=== PATIENT | male | born 1960 | race African-American/Black ===

== ENCOUNTER 2016-05-22 20:48 | Emergency (ER) | payer SELFPAY ==
[2016-05-22] MEDS ORDERED: Oxymetazoline HCl 0.05% ( 15 ML ) ONE (21:09)
--- NOTE | 2016-05-22 21:40 | ERRECORD ---
[facility] EMERGENCY RECORD HPI GENERAL (21:17 [facility]) CHIEF COMPLAINT: Patient presents for evaluation of nose bleed. HISTORIAN: History provided by patient, 56 yo M with sinus congestion past week with nose bleed on/off x 2-3 days sinus congestion past week no other symptoms. MECHANISM OF INJURY: Unknown mechanism. LOCATION: Symptoms are generalized. QUALITY: Pain is dull in nature. SEVERITY: Maximum severity of symptoms mild, Currently there are no symptoms. TIME COURSE: Sudden onset of symptoms, Symptoms are improving, are intermittent. ASSOCIATED WITH: No associated symptoms. EXACERBATED BY: Patient's condition exacerbated by nothing. RELIEVED BY: Nothing tried for relief. ROS (21:17 [facility]) CONSTITUTIONAL: Negative constitutional review of systems. ENT: Historian reports rhinorrhea, nose bleed. CARDIOVASCULAR: Negative cardiovascular review of systems. RESPIRATORY: Negative respiratory review of systems. MUSCULOSKELETAL: Negative musculoskeletal review of systems. NEUROLOGIC: Negative neurologic review of systems. PAST MEDICAL HISTORY (21:01 [facility]) MEDICAL HISTORY: Flu vaccine up to date, Tetanus immunization up to date, Pneumococcal vaccine not up to date, Past medical history includes history of hypertension, which has been treated, Patient is compliant. MALE SURGICAL HISTORY: Patient has no surgical history. PSYCHIATRIC HISTORY: No previous psychiatric history. SOCIAL HISTORY: Patient drinks socially, once a month, Patient denies drug use, Patient currently uses tobacco, smokes cigarettes, daily, Patient has smoked for 30 years, Patient smokes 1 pack per day, Lives at home, alone. KNOWN ALLERGIES No Known Drug Allergies CURRENT MEDICATIONS (20:55 [facility]) hydrochlorothiazide: CAPSULE : Strength - 12.5 mg : ORAL Patient Dose: unknown Oral once a day.Paired with an antihypertensive but doesn't know which one. VITAL SIGNS (20:51 [facility]) &a-1R&a+25V*p+0X*c8712C*c202B*c15G*c2P*p-0X&a-25V&a+1R Name: Adebayo Bates : 1960 M56 MedRec: [id number] AcctNum: [id number] Prepared: Sen May 22, 2016 21:50 by Interface Page 1 of 3 pMD [facility] EMERGENCY RECORD VITAL SIGNS: BP: 161/82, Pulse: 72, Resp: 20, Temp: 96.5 (Tympanic), Pain: 0, O2 sat: 100 on Room Air, Time: 05/22/2016 20:51. PHYSICAL EXAM (21:18 [facility]) CONSTITUTIONAL: Vital signs reviewed, Patient afebrile, Pulse normal, Blood pressure, hypertensive, Respiratory rate normal, Patient appears non toxic, Patient appears pain free, Patient alert and oriented to person, place and time. HEAD: Head exam normal. EYES: Eye exam normal. ENT: Ear exam normal, Nose exam included findings of, Bleeding from the right nare, anterior / bleeding stopped after packing and afrin, Pharynx exam normal, Mouth exam normal. NECK: Neck exam normal. RESPIRATORY CHEST: Respiratory and chest exam normal. CARDIOVASCULAR: Cardiovascular assessment normal. DOCTOR NOTES (21:15 [facility]) RE-EVALUATION: The patient's condition has improved. TEXT: 56 yo M with sinus congestion past week with nose bleed on/off x 2-3 days symptoms resolved in ER with packing and afrin. PATIENT PLAN: The patient will be discharged, The patient will follow up with primary care physician. DATA REVIEWED: Discussed with family. PROBLEM LIST No recorded problems DIAGNOSIS (21:15 [facility]) FINAL: PRIMARY: EPISTAXIS, ADDITIONAL: sinusitis. PRESCRIPTION Flonase: SPRAY, SUSPENSION : 50 mcg : NASAL : Quantity: 2 Unit: spray(s) Route: NASAL Schedule: once a day Dispense: 1 May substitute. Refills: No Refills . (21:14 [facility]) NOTES: 2 sprays nasally daily as needed until symptoms resolved No Refills. (21:14 [facility]) Claritin: TABLET : 10 mg : ORAL : Quantity: 1 Unit: tab(s) Route: ORAL Schedule: once a day Dispense: 15 Unit: tab(s) May substitute. Refills: No Refills . (21:14 [facility]) NOTES: No Refills. (21:14 [facility]) Claritin (REPRINT): TABLET : 10 mg : ORAL : Quantity: 1 Unit: tab(s) Route: ORAL Schedule: once a day Dispense: 15 Unit: tab(s) &a-1R&a+25V*p+0X*a5052T*c202B*c15G*c2P*p-0X&a-25V&a+1R Name: Adebayo Bates : 1960 M56 MedRec: [id number] AcctNum: [id number] Prepared: Sen May 22, 2016 21:50 by Interface Page 2 of 3 pMD [facility] EMERGENCY RECORD May substitute. Refills: No Refills . (21:16 [facility]) Flonase (REPRINT): SPRAY, SUSPENSION : 50 mcg : NASAL : Quantity: 2 Unit: spray(s) Route: NASAL Schedule: once a day Dispense: 1 May substitute. Refills: No Refills . (21:16 [facility]) Claritin (REPRINT): TABLET : 10 mg : ORAL : Quantity: 1 Unit: tab(s) Route: ORAL Schedule: once a day Dispense: 15 Unit: tab(s) May substitute. Refills: No Refills . (21:24 [facility]) Flonase (REPRINT): SPRAY, SUSPENSION : 50 mcg : NASAL : Quantity: 2 Unit: spray(s) Route: NASAL Schedule: once a day Dispense: 1 May substitute. Refills: No Refills . (21:24 [facility]) SPRAY, SUSPENSION : 50 mcg : NASAL : Quantity: 2 Unit: spray(s) Route: NASAL Schedule: once a day Dispense: 1 May substitute. Refills: No Refills . (21:39 [facility]) DISPOSITION PATIENT: Disposition Type: Discharge, Disposition: *Discharge Home. (21:15 [facility]) Patient left the department. (21:33 [facility]) Maynard: [facility]=TISHA Sheridan, Cuca HANCOCK=MD Shruthi, Mary &a-1R&a+25V*p+0X*v8738V*c202B*c15G*c2P*p-0X&a-25V&a+1R Name: Adebayo Bates : 1960 M56 MedRec: [id number] AcctNum: [id number] Prepared: Sen May 22, 2016 21:50 by Interface Page 3 of 3 pMD MTDD
--- NOTE | 2016-05-22 21:46 | PICIS ---
[facility] EMERGENCY RECORD TRIAGE (SatMay 22, 2016 20:53 [facility]) TRIAGE NOTES: Nose bleed (off/on) since Saturday. Unable to get an appointment with PCP today, told to try back on Saturday. (SatMay 22, 2016 20:53 [facility]) PATIENT: NAME: Adebayo Bates, AGE: 56, GENDER: male, : Sat1960, TIME OF GREET: SatMay 22, 2016 20:49, PREFERRED LANGUAGE: Portuguese, ETHNICITY: Not or , ECODE BILLING MAP: [facility], SSN: [id number], Zip Code: [address], KG WEIGHT: 63.50, PHONE: , , , PERSON ID: [id number], PCP: Fabien Moreno /Carlos Enrique. (SatMay 22, 2016 20:53 [facility]) COMPLAINT: NOSE BLEED SINCE SAT,OFF/ON. (SatMay 22, 2016 20:53 [facility]) ADMISSION: URGENCY: 5 [facility], ADMISSION SOURCE: Home, TRANSPORT: CAR, BED: ER -05. (SatMay 22, 2016 20:53 [facility]) ASSESSMENT: Symptoms began 05/12/2016 20:58, Additional Triage notes: Wadded tissue removed from right nare followed by clot, does not appear to be actively bleeding at this time. (21:01 [facility]) PAIN: No complaint of pain. (21:01 [facility]) SIRS SCORING: Heart Rate 55-109 (0), Temp range 96.8-101.1 (0), respiratory rate 12-24 (0), Mental Status altered: no (0). (21:01 [facility]) TRIAGE SCREENING: Patient denies suicidal ideation, Patient denies presence of domestic violence. (21:01 [facility]) TREATMENTS IN PROGRESS: Treatments given Prehospital: Tyelnol tonight HORTICULTURAL NURSERY ASSISTANT. (21:01 [facility]) PROVIDERS: TRIAGE NURSE: Cuca Sheridan RN. (SatMay 22, 2016 20:53 [facility]) VITAL SIGNS: BP 161/82, Pulse 72, Resp 20, Temp 96.5, (Tympanic), Pain 0, O2 Sat 100, on Room Air, Time 05/22/2016 20:51. (20:51 [facility]) PREVIOUS VISIT ALLERGIES: No Known Drug Allergies. (SatMay 22, 2016 20:53 [facility]) No Known Drug Allergies. (21:01 [facility]) KNOWN ALLERGIES No Known Drug Allergies CURRENT MEDICATIONS (20:55 [facility]) hydrochlorothiazide: CAPSULE : Strength - 12.5 mg : ORAL Patient Dose: unknown Oral once a day.Paired with an antihypertensive but doesn't know which one. VITAL SIGNS (20:51 [facility]) VITAL SIGNS: BP: 161/82, Pulse: 72, Resp: 20, Temp: 96.5 (Tympanic), Pain: 0, O2 sat: 100 on Room Air, Time: 05/22/2016 20:51. NURSING ASSESSMENT: ENT (21:02 [facility]) CONSTITUTIONAL: Patient arrives ambulatory, Gait steady, History &a-1R&a+25V*p+0X*f9123L*c202B*c15G*c2P*p-0X&a-25V&a+1R Name: Adebayo Bates : 1960 M56 MedRec: [id number] AcctNum: [id number] Prepared: SatMay 22, 2016 21:50 by Interface Page 1 of 5 pMD [facility] EMERGENCY RECORD obtained from patient, Patient appears comfortable, Patient cooperative, Patient alert, Oriented to person, place and time, Skin warm, Skin dry, Skin normal in color, Mucous membranes pink, Mucous membranes moist, Patient complains of Nose bleed, Nose bleed (off/on) since Saturday. Unable to get an appointment with PCP today, told to try back on Saturday. ENT: Ear assessment findings include ear normal to inspection, no drainage from ears, Bleeding, small amount, from the right nare, controlled, States it doesn't bleed for very long, maybe 2-5 minutes. Then returns the next day. Saturday -3 nose bleeds Saturday -1 Saturday -none Saturday/ -2 times, Discharge, thin, from bilateral nare, Pt reports clear discharge, Mouth and throat assessment findings include mouth inspection normal, Mucous membranes pink, and moist, Able to swallow, Speech normal, no associated fever, no associated headache. RESPIRATORY/CHEST: Breath sounds clear, Respiratory assessment findings include respiratory effort easy, Respirations regular, Conversing normally, Neck and chest exam findings include trachea midline, Chest expansion equal, Chest movement symmetrical, no signs of distress, Associated with cough, productive of, blood tinged sputum. SAFETY: Side rails up, Cart/Stretcher in lowest position, Family at bedside, Call light within reach, Hospital ID band on. NURSING PROCEDURE: DISCHARGE NOTE (21:33 [facility]) DISCHARGE: Patient discharged to home, ambulating without assistance, family driving, accompanied by other family member, Summary of Care printed/ provided, Discharge instructions given to patient, Discharge instructions given to SISTER, Simple or moderate discharge teaching performed, . Educated ON diagnosis of: SINUSITIS Advised to follow up with PCP in a few days., Prescriptions given and instructions on side effects given, Name of prescription(s) given: Flonase, Above person(s) verbalized understanding of discharge instructions and follow-up care, Notes: Nose not actively bleeding at discharged. Patient ambulated out of department with steady gait, NAD. BELONGINGS: Belongings and valuables with patient upon arrival to the Emergency Department include:, Belongings and valuables with patient at time of discharge include:, Belongings remain with patient, Valuables remain with patient. SAFETY: Side rails up, Cart/Stretcher in lowest position, Family at bedside, Call light within reach, Hospital ID band on. HPI GENERAL (21:17 [facility]) CHIEF COMPLAINT: Patient presents for evaluation of nose bleed. &a-1R&a+25V*p+0X*n4827Z*c202B*c15G*c2P*p-0X&a-25V&a+1R Name: Paulo Adebayo D : 1960 M56 MedRec: [id number] AcctNum: [id number] Prepared: Sen May 22, 2016 21:50 by Interface Page 2 of 5 pMD [facility] EMERGENCY RECORD HISTORIAN: History provided by patient, 56 yo M with sinus congestion past week with nose bleed on/off x 2-3 days sinus congestion past week no other symptoms. MECHANISM OF INJURY: Unknown mechanism. LOCATION: Symptoms are generalized. QUALITY: Pain is dull in nature. SEVERITY: Maximum severity of symptoms mild, Currently there are no symptoms. TIME COURSE: Sudden onset of symptoms, Symptoms are improving, are intermittent. ASSOCIATED WITH: No associated symptoms. EXACERBATED BY: Patient's condition exacerbated by nothing. RELIEVED BY: Nothing tried for relief. ROS (21:17 [facility]) CONSTITUTIONAL: Negative constitutional review of systems. ENT: Historian reports rhinorrhea, nose bleed. CARDIOVASCULAR: Negative cardiovascular review of systems. RESPIRATORY: Negative respiratory review of systems. MUSCULOSKELETAL: Negative musculoskeletal review of systems. NEUROLOGIC: Negative neurologic review of systems. PAST MEDICAL HISTORY (21:01 [facility]) MEDICAL HISTORY: Flu vaccine up to date, Tetanus immunization up to date, Pneumococcal vaccine not up to date, Past medical history includes history of hypertension, which has been treated, Patient is compliant. MALE SURGICAL HISTORY: Patient has no surgical history. PSYCHIATRIC HISTORY: No previous psychiatric history. SOCIAL HISTORY: Patient drinks socially, once a month, Patient denies drug use, Patient currently uses tobacco, smokes cigarettes, daily, Patient has smoked for 30 years, Patient smokes 1 pack per day, Lives at home, alone. PHYSICAL EXAM (21:18 [facility]) CONSTITUTIONAL: Vital signs reviewed, Patient afebrile, Pulse normal, Blood pressure, hypertensive, Respiratory rate normal, Patient appears non toxic, Patient appears pain free, Patient alert and oriented to person, place and time. HEAD: Head exam normal. EYES: Eye exam normal. ENT: Ear exam normal, Nose exam included findings of, Bleeding from the right nare, anterior / bleeding stopped after packing and afrin, Pharynx exam normal, Mouth exam normal. NECK: Neck exam normal. RESPIRATORY CHEST: Respiratory and chest exam normal. &a-1R&a+25V*p+0X*u3270A*c202B*c15G*c2P*p-0X&a-25V&a+1R Name: Adebayo Bates : 1960 M56 MedRec: [id number] AcctNum: [id number] Prepared: SatMay 22, 2016 21:50 by Interface Page 3 of 5 pMD [facility] EMERGENCY RECORD CARDIOVASCULAR: Cardiovascular assessment normal. EVENTS TRANSFER: Triage to Emergency Emergency Room -05. (SatMay 22, 2016 20:53 [facility]) Removed from Emergency Emergency Room -05. (21:33 [facility]) DOCTOR NOTES (21:15 [facility]) RE-EVALUATION: The patient's condition has improved. TEXT: 56 yo M with sinus congestion past week with nose bleed on/off x 2-3 days symptoms resolved in ER with packing and afrin. PATIENT PLAN: The patient will be discharged, The patient will follow up with primary care physician. DATA REVIEWED: Discussed with family. PROBLEM LIST No recorded problems DIAGNOSIS (21:15 [facility]) FINAL: PRIMARY: EPISTAXIS, ADDITIONAL: sinusitis. DISPOSITION PATIENT: Disposition Type: Discharge, Disposition: *Discharge Home. (21:15 [facility]) Patient left the department. (21:33 [facility]) INSTRUCTION (21:38 [facility]) DISCHARGE: EPISTAXIS (ADULT), SINUSITIS, NO ABX. FOLLOWUP: [facility], [facility], [facility] [address], . SPECIAL: Follow-up with your primary physician as needed. PRESCRIPTION Flonase: SPRAY, SUSPENSION : 50 mcg : NASAL : Quantity: 2 Unit: spray(s) Route: NASAL Schedule: once a day Dispense: 1 May substitute. Refills: No Refills . (21:14 [facility]) NOTES: 2 sprays nasally daily as needed until symptoms resolved No Refills. (21:14 [facility]) Claritin: TABLET : 10 mg : ORAL : Quantity: 1 Unit: tab(s) Route: ORAL Schedule: once a day Dispense: 15 Unit: tab(s) May substitute. Refills: No Refills . (21:14 [facility]) NOTES: No Refills. (21:14 [facility]) Claritin (REPRINT): TABLET : 10 mg : ORAL : Quantity: 1 Unit: tab(s) Route: ORAL Schedule: once a day Dispense: 15 Unit: tab(s) &a-1R&a+25V*p+0X*n0932F*c202B*c15G*c2P*p-0X&a-25V&a+1R Name: Adebayo Bates : 1960 M56 MedRec: [id number] AcctNum: [id number] Prepared: SatMay 22, 2016 21:50 by Interface Page 4 of 5 pMD [facility] EMERGENCY RECORD May substitute. Refills: No Refills . (21:16 [facility]) Flonase (REPRINT): SPRAY, SUSPENSION : 50 mcg : NASAL : Quantity: 2 Unit: spray(s) Route: NASAL Schedule: once a day Dispense: 1 May substitute. Refills: No Refills . (21:16 [facility]) Claritin (REPRINT): TABLET : 10 mg : ORAL : Quantity: 1 Unit: tab(s) Route: ORAL Schedule: once a day Dispense: 15 Unit: tab(s) May substitute. Refills: No Refills . (21:24 [facility]) Flonase (REPRINT): SPRAY, SUSPENSION : 50 mcg : NASAL : Quantity: 2 Unit: spray(s) Route: NASAL Schedule: once a day Dispense: 1 May substitute. Refills: No Refills . (21:24 [facility]) SPRAY, SUSPENSION : 50 mcg : NASAL : Quantity: 2 Unit: spray(s) Route: NASAL Schedule: once a day Dispense: 1 May substitute. Refills: No Refills . (21:39 [facility]) ADMIN (21:44 [facility]) DIGITAL SIGNATURE: MD Shruthi, Mary. Maynard: [facility]=TISHA Sheridan, [facility]=MD Shruthi, Mary &a-1R&a+25V*p+0X*v7387T*c202B*c15G*c2P*p-0X&a-25V&a+1R Name: Adebayo Bates : 1960 M56 MedRec: [id number] AcctNum: [id number] Prepared: SatMay 22, 2016 21:50 by Interface Page 5 of 5 pMD MTDD
== END 2016-05-22 21:33 | disposition home or self-care (01) ==
LOC: NAV ERS 20:48
DX: R04.0 Epistaxis (principal); J32.9 Chronic sinusitis, unspecified; I10 Essential (primary) hypertension; F17.210 Nicotine dependence, cigarettes, uncomplicated; Z79.899 Other long term (current) drug therapy
CPT/HCPCS: 99283

== ENCOUNTER 2016-06-25 19:42 | Emergency (ER) | payer SELFPAY ==
--- NOTE | 2016-06-25 20:33 | RAD ---
RIGHT FOOT THREE VIEWS: History: Evaluate for foreign body. Comparison: None. FINDINGS: Minimal vascular calcifications along the anterior tibial artery. Subtalar joint space is unremarka ble. Lisfranc alignment is maintained. No fracture. No cortical irregularity. Mild degenerative change of the first digit. No radiopaque foreign body. IMPRESSION: No radiopaque foreign body. POS: [facility]
== END 2016-06-25 20:34 | disposition home or self-care (01) ==
LOC: NAV ERS 19:42
DX: S91.331A Puncture wound without foreign body, right foot, initial encounter (principal); I10 Essential (primary) hypertension; F17.210 Nicotine dependence, cigarettes, uncomplicated; Z79.82 Long term (current) use of aspirin; X58.XXXA Exposure to other specified factors, initial encounter

== ENCOUNTER 2016-08-16 09:24 | Emergency (ER) | payer SELFPAY ==
[2016-08-16] MEDS ORDERED: Oxymetazoline HCl 0.05% ( 15 ML ) ONE (09:37)
== END 2016-08-16 10:00 | disposition home or self-care (01) ==
LOC: NAV ERS 09:24
DX: R04.0 Epistaxis (principal); I10 Essential (primary) hypertension; F17.210 Nicotine dependence, cigarettes, uncomplicated; Z79.82 Long term (current) use of aspirin; Z79.899 Other long term (current) drug therapy
CPT/HCPCS: 30901

== ENCOUNTER 2017-06-03 18:29 | Emergency (ER) | payer SELFPAY | END 2017-06-03 19:10 | disposition home or self-care (01) | LOC: NAV ERS 18:29 | DX: B35.3 Tinea pedis (principal); I10 Essential (primary) hypertension; F17.210 Nicotine dependence, cigarettes, uncomplicated; Z79.899 Other long term (current) drug therapy; Z79.4 Long term (current) use of insulin; Z79.82 Long term (current) use of aspirin | CPT/HCPCS: 99282 ==

== ENCOUNTER 2017-08-06 18:26 | Emergency (ER) | payer SELFPAY ==
[2017-08-06] MEDS ORDERED: Ibuprofen 800 MG TAB ONE (18:55)
== END 2017-08-06 19:04 | disposition home or self-care (01) ==
LOC: NAV ERS 18:26
DX: S46.811A Strain of other muscles, fascia and tendons at shoulder and upper arm level, right arm, initial encounter (principal); I10 Essential (primary) hypertension; F17.210 Nicotine dependence, cigarettes, uncomplicated; X50.0XXA Overexertion from strenuous movement or load, initial encounter
CPT/HCPCS: 99283

== ENCOUNTER 2018-05-11 06:31 | Emergency (ER) | payer SELFPAY | END 2018-05-11 07:37 | disposition home or self-care (01) | LOC: NAV ERS 06:31 | DX: K02.9 Dental caries, unspecified (principal); I10 Essential (primary) hypertension; F17.210 Nicotine dependence, cigarettes, uncomplicated; Z79.82 Long term (current) use of aspirin; Z79.899 Other long term (current) drug therapy | CPT/HCPCS: 99282 ==

== ENCOUNTER 2018-11-04 22:38 | Emergency (ER) | payer SELFPAY ==
[2018-11-04] MEDS ORDERED: Lidocaine 1% (PF) 30 ML VIAL ONE (23:01)
[2018-11-04] MEDS ORDERED: Cephalexin 250 MG CAP ONE (23:13)
== END 2018-11-04 23:25 | disposition home or self-care (01) ==
LOC: NAV ERS 22:38
DX: L03.012 Cellulitis of left finger (principal); I10 Essential (primary) hypertension; F17.210 Nicotine dependence, cigarettes, uncomplicated; Z79.82 Long term (current) use of aspirin; Z79.899 Other long term (current) drug therapy
CPT/HCPCS: 10060; 99406; J2001

== ENCOUNTER 2019-04-27 12:08 | Emergency (ER) | payer SELFPAY ==
[2019-04-27] MEDS ORDERED: Bacitracin 1 PK ONE (13:22)
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
== END 2019-04-27 13:30 | disposition home or self-care (01) ==
LOC: NAV ERS 12:08
DX: S61.112A Laceration without foreign body of left thumb with damage to nail, initial encounter (principal); I10 Essential (primary) hypertension; F17.210 Nicotine dependence, cigarettes, uncomplicated; Z79.899 Other long term (current) drug therapy; Z79.82 Long term (current) use of aspirin; W22.8XXA Striking against or struck by other objects, initial encounter

== ENCOUNTER 2019-08-08 08:46 | Emergency (ER) | payer SELFPAY | END 2019-08-08 09:45 | disposition home or self-care (01) | LOC: NAV ERS 08:46 | DX: K04.7 Periapical abscess without sinus (principal); K02.9 Dental caries, unspecified; K03.81 Cracked tooth; H61.23 Impacted cerumen, bilateral; I10 Essential (primary) hypertension; F17.210 Nicotine dependence, cigarettes, uncomplicated; Z79.899 Other long term (current) drug therapy | CPT/HCPCS: 99283 ==

== ENCOUNTER 2020-11-27 12:27 | Emergency (ER) | payer SELFPAY ==
[2020-11-28 14:34] LABS: SARS-CoV-2 PCR by NAA Not Detected (NotDetected)
== END 2020-11-27 13:11 | disposition home or self-care (01) ==
LOC: NAV ERS 12:27
DX: J20.9 Acute bronchitis, unspecified (principal); Z20.822 Contact with and (suspected) exposure to COVID-19; I10 Essential (primary) hypertension; F17.210 Nicotine dependence, cigarettes, uncomplicated; Z79.899 Other long term (current) drug therapy
CPT/HCPCS: 99283; U0003; U0005

== ENCOUNTER 2022-01-21 13:05 | Emergency (ER) | payer SELFPAY | END 2022-01-21 14:26 | disposition home or self-care (01) | LOC: NAV ERS 13:05 | DX: T17.228A Food in pharynx causing other injury, initial encounter (principal); I10 Essential (primary) hypertension; F17.210 Nicotine dependence, cigarettes, uncomplicated; Z79.01 Long term (current) use of anticoagulants; Z79.899 Other long term (current) drug therapy; X58.XXXA Exposure to other specified factors, initial encounter | CPT/HCPCS: 99283 ==

== ENCOUNTER 2024-04-07 10:27 | Emergency (ER) | payer SELFPAY ==
[2024-04-07] MEDS ORDERED: EPINEPHrine 1 MG/ML AMP ONE (10:31)
[2024-04-07 12:35] LABS: #Basophils 0.1 thou/uL (0.0-0.2); #Lymphocytes 1.3 thou/uL (1.20-3.40); #Monocytes 0.7 thou/uL (0.11-0.59); #Neutrophils 3.8 thou/uL (1.40-6.50); %Basophils 1.4 % (0.0-1.0); %Eosinophils 0.7 % (0.0-10.0); %Lymphocytes 22.1 % (21.0-51.0); %Monocytes 11.3 % (0.0-10.0); %Neutrophils 64.5 % (42.0-75.0); Hematocrit 45.6 % (42.0-52.0); Hemoglobin 14.6 g/dL (14.0-18.0); Mean Corpuscular Hemoglobin 28.2 pg (27.0-31.0); Mean Platelet Volume 6.3 fL (7.4-10.4); Platelet Count 310 10x3/uL (130-400); RBC Distribution Width 12.9 % (11.5-14.5); Red Blood Cell (RBC) Count 5.18 mill/uL (4.70-6.10); White Blood Cell (WBC) Count 5.9 10x3/uL (4.8-10.8)
[2024-04-07 12:38] LABS: Bilirubin Negative (Negative); Blood, Urine Negative (Negative); Glucose, Urine (Dipstick) Negative (Negative); Ketone, Urine Negative (Negative); Leukocyte Negative (Negative); Nitrite Negative (Negative); Protein, Urine (Dipstick) Negative (Neg-Trace); Specific Gravity, Urine 1.015 (1.005-1.030); Urobilinogen 0.2 mg/dL (Less than 2)
[2024-04-07 12:43] LABS: Clarity Hazy (Clear)
[2024-04-07 12:50] LABS: ALT (SGPT) Less than 7 U/L (8-55); AST (SGOT) 13 U/L (5-34); Albumin 3.9 g/dL (3.4-4.8); Alkaline Phosphatase 85 U/L (40-110); Anion Gap 16 mmol/L (10-20); BUN (Urea Nitrogen) 8 mg/dL (8.4-25.7); Bilirubin, Total 0.5 mg/dL (0.2-1.2); Calc. Creatinine Clearance 0 mL/min (70-130); Calcium 9.9 mg/dL (7.8-10.44); Carbon Dioxide 26 mmol/L (23-31); Chloride 100 mmol/L (98-107); Estimated GFR 79; Globulin 4.9 g/dL (2.4-3.5); Glucose 91 mg/dL (80-115); Potassium 4.5 mmol/L (3.5-5.1); Protein, Total 8.8 g/dL (5.8-8.1); Sodium 137 mmol/L (136-145)
[2024-04-07 12:53] LABS: CAUTI Indications for Culture Pelvic or flank pain; Squamous Epithelial 0-3 HPF (0-3); WBC/HPF 0-3 HPF (0-3)
[2024-04-07 12:54] LABS: Urine Culture Reflex No No
[2024-04-07] MEDS ORDERED: Ketorolac Tromethamine 30 MG (1 mL) VIAL ONE (13:17)
== END 2024-04-07 13:28 | disposition home or self-care (01) ==
LOC: NAV ERS 10:27
DX: S39.012A Strain of muscle, fascia and tendon of lower back, initial encounter (principal); F17.210 Nicotine dependence, cigarettes, uncomplicated; I10 Essential (primary) hypertension; X50.0XXA Overexertion from strenuous movement or load, initial encounter; Z79.899 Other long term (current) drug therapy
CPT/HCPCS: 80053; 81001; 85025; 96374; J0171; J1885

== ENCOUNTER 2024-08-08 13:05 | Emergency (ER) | payer MEDICARE, MEDICAID ==
[~2024-08-08 13:05] MED LIST: Iopamidol 370 76% 100 ML VIAL ONE
[2024-08-08 13:41] LABS: #Basophils 0.1 thou/uL (0.0-0.2); #Eosinophils 0.1 thou/uL (0.0-0.7); #Lymphocytes 1.8 thou/uL (1.20-3.40); #Monocytes 0.5 thou/uL (0.11-0.59); #Neutrophils 2.1 thou/uL (1.40-6.50); %Basophils 1.6 % (0.0-1.0); %Eosinophils 1.3 % (0.0-10.0); %Lymphocytes 39.5 % (21.0-51.0); %Monocytes 11.7 % (0.0-10.0); %Neutrophils 45.9 % (42.0-75.0); Hematocrit 45.4 % (42.0-52.0); Mean Corpuscular HGB CONC 30.9 g/dL (32.0-36.0); Mean Corpuscular Hemoglobin 27.7 pg (27.0-31.0); Mean Corpuscular Volume 89.6 fl (78.0-98.0); Mean Platelet Volume 5.3 fL (7.4-10.4); Platelet Count 276 10x3/uL (130-400); RBC Distribution Width 13.4 % (11.5-14.5); Red Blood Cell (RBC) Count 5.07 mill/uL (4.70-6.10); White Blood Cell (WBC) Count 4.6 10x3/uL (4.8-10.8)
[2024-08-08 14:04] LABS: ALT (SGPT) 12 U/L (Less than 45); AST (SGOT) 19 U/L (11-34); Alcohol Less than 10.0 mg/dL (Less than 10); Alkaline Phosphatase 68 U/L (40-110); Anion Gap 14 mmol/L (10-20); BUN (Urea Nitrogen) 11 mg/dL (8.4-25.7); Bilirubin, Total 0.4 mg/dL (0.3-1.2); Calc. Creatinine Clearance 0 mL/min (70-130); Calcium 9.3 mg/dL (7.8-10.44); Carbon Dioxide 25 mmol/L (23-31); Chloride 105 mmol/L (98-107); Estimated GFR 86; Globulin 3.5 g/dL (2.4-3.5); Glucose 89 mg/dL (80-115); Potassium 3.7 mmol/L (3.5-5.1); Protein, Total 7.5 g/dL (5.8-8.1); Sodium 140 mmol/L (136-145)
[2024-08-08 14:14] LABS: INR-International Normal Ratio 1.1; Prothrombin Time 13.8 sec (12.0-14.7)
[2024-08-08 14:15] LABS: PTT 28.3 sec (22.9-36.1)
[2024-08-08 14:18] LABS: Troponin I 0.041 ng/mL (< 0.028)
[2024-08-08 14:32] LABS: Bilirubin Negative (Negative); Blood, Urine Negative (Negative); Clarity Clear (Clear); Glucose, Urine (Dipstick) Negative (Negative); Ketone, Urine Negative (Negative); Leukocyte Negative (Negative); Nitrite Negative (Negative); Protein, Urine (Dipstick) Negative (Neg-Trace); Urobilinogen 0.2 mg/dL (Less than 2)
[2024-08-08] MEDS ORDERED: Boostrix 0.5 ML (Tdap) VIAL (>/=7 yrs of age) ONE (14:37)
[2024-08-08 14:42] LABS: Amphetamine Negative (Negative); Barbiturates Screen Negative (Negative); Benzodiazepine Screen Negative (Negative); Cocaine Metabolite Screen Negative (Negative); Methadone Negative (Negative); Methamphetamine Negative (Negative); Opiate Screen Negative (Negative); Oxycodone Screen Negative (Negative); Phencyclidine (PCP) Negative (Negative); THC/Cannabinoid Screen Negative (Negative); Tricyclic Screen Negative (Negative)
[2024-08-08 14:46] LABS: CAUTI Indications for Culture Dysuria,urgency,freq; Sperm/HPF Rare HPF (None Seen); WBC/HPF None Seen HPF (0-3)
[2024-08-08 14:47] LABS: Urine Culture Reflex No No
== END 2024-08-08 15:00 | disposition short-term general hospital (02) ==
LOC: NAV ERS 13:05
DX: S11.81XA Laceration without foreign body of other specified part of neck, initial encounter (principal); I10 Essential (primary) hypertension; F17.210 Nicotine dependence, cigarettes, uncomplicated; Z23 Encounter for immunization; Z79.899 Other long term (current) drug therapy; W26.0XXA Contact with knife, initial encounter
CPT/HCPCS: 70498; 80053; 80306; 80307; 81001; 84484; 85025; 85610; 85730; 86900; 86901; 90471; 90715; 93005; 94760; Q9967